=== PATIENT | female | born 1990 | race African-American/Black ===

== ENCOUNTER 2020-05-08 16:26 | Emergency (ER) | payer SELFPAY ==
[~2020-05-08] VITALS: Ht 180.3 cm; Wt 109.0 kg
[2020-05-08 16:28] VITALS: BP 113/67
== END 2020-05-08 16:45 | disposition left against medical advice (07) ==
LOC: ER 16:26
DX: Z53.21 Procedure and treatment not carried out due to patient leaving prior to being seen by health care provider (principal)